=== PATIENT | female | born 1950 | race Two or more races ===

== ENCOUNTER 2025-09-06 09:48 | Outpatient (CLI) | payer MEDICAID ==
[2025-09-06 10:51] LABS: Hematocrit 33.9 % (36.0-46.0); Hemoglobin 10.8 g/dL (12.2-16.2); Mean Corpuscular Hemoglobin 25.0 pg (28.0-32.0); Mean Corpuscular Volume 78.5 fL (80.0-100.0); Nucleated Red Blood Cells % 0.0 %
[2025-09-06 10:54] LABS: Urine Protein, UAD TRACE (Negative)
[2025-09-06 13:43] LABS: Microalb/Creat Ratio, Urine 25.0
[2025-09-06 15:18] LABS: Albumin 4.5 g/dL (3.2-4.8); Anion Gap 15 (5-15); BUN/Creatinine Ratio 13.7 (10.0-20.0); Bilirubin, Total 0.4 mg/dL (0.2-1.0); Blood Urea Nitrogen 17 mg/dL (9-23); Calcium 9.2 mg/dL (8.7-10.4); Carbon Dioxide 20 mmol/L (20-31); Cholesterol 110 mg/dL (< 200); HDL Cholesterol 44 mg/dL (40-59); Potassium 4.9 mmol/L (3.5-5.1); Sodium 143 mmol/L (136-145); Total Protein 7.5 g/dL (5.7-8.2); Triglycerides 140 mg/dL (< 150)
[2025-09-06 15:20] LABS: Alanine Aminotransferase < 9 U/L (7-40); Alkaline Phosphatase 119 U/L (46-116); Chloride 108 mmol/L (98-107); Glucose 142 mg/dL (74-106)
== END 2025-09-06 17:00 | disposition home or self-care (01) ==
LOC: LAB 09:48
PROVIDERS: ATTEND Nurse Practitioner Family
DX: I10 Essential (primary) hypertension (principal); E11.9 Type 2 diabetes mellitus without complications; E78.5 Hyperlipidemia, unspecified; E55.9 Vitamin D deficiency, unspecified
CPT/HCPCS: 36415; 80053; 80061; 81001; 82043; 82306; 82570; 82607; 83036; 84443; 85025